=== PATIENT | female | born 1945 | race Caucasian/White ===

== ENCOUNTER → 2017-05-31 | Outpatient (CLI) | payer OTHER ==
[~2017-05-31] MED LIST: ALBUTEROL SULF8.5 GM IH; AMARYL4 MG PO; ARTIFICIAL TEAR15 M1 BOTH EYES; CLARITIN10 M3 PO; FORTAMET500 M1 PO; GLUCOPHAGE500 MG PO; LIPITOR20 MG PO; LISINOPRIL20 MG PO; NASAL SPRAY30 M4 BOTH NARES; OMEPRAZOLE40 M1 PO; PRILOSEC OTC20 MG PO; PROTONIX40 M1 PO; SYNTHROID100 MCG PO; SYNTHROID112 MCG PO; ZESTRIL20 MG PO
== END | disposition home or self-care (01) ==
LOC: NUC 06:41
DX: R93.3 Abnormal findings on diagnostic imaging of other parts of digestive tract (principal)
CPT/HCPCS: 78264; A9541